=== PATIENT | male | born 1995 | race Caucasian/White ===

== ENCOUNTER 2022-12-23 02:39 | Emergency (ER) | payer SELFPAY ==
[~2022-12-23] VITALS: Ht 180.3 cm; Wt 108.9 kg
[2022-12-23 02:53] VITALS: BP_SYST 139; PULSE 58; RESP 20; O2SAT 98
--- NOTE | 2022-12-23 02:53 | NUR ---
Patient triaged and placed in waiting room. VSS and patient appears in no acute distress at this time. Accompanied by SELF, awaiting available bed, and MD notified of need for MSE.
[2022-12-23 03:36] LABS: BASOPHILS # (AUTO) 0.1 K/uL (0.0-0.2); BASOPHILS % (AUTO) 0.5 % (0.0-2.0); EOSINOPHILS # (AUTO) 0.1 K/uL (0.0-0.4); EOSINOPHILS % (AUTO) 0.7 % (0.0-4.0); HEMATOCRIT 50.4 % (36-54); HEMOGLOBIN 16.8 g/dL (14.0-18.0); LYMPHOCYTES # (AUTO) 3.3 K/uL (1.0-5.5); MEAN CORPUSCULAR HEMOGLOBIN 29 pg (27-31); MEAN CORPUSCULAR HGB CONC 33 % (32-36); MEAN CORPUSCULAR VOLUME 86 fL (79.0-98.0); MONOCYTES # (AUTO) 0.8 K/uL (0.0-1.0); MONOCYTES % (AUTO) 4.6 % (1.7-9.3); NEUTROPHILS # (AUTO) 13.2 K/uL (1.8-7.7); NEUTROPHILS % (AUTO) 75.2 % (40.0-70.0); PLATELET COUNT (AUTO) 411 K/uL (130-430); RED BLOOD CELL COUNT(AUTO) 5.87 MIL/uL (4.2-6.2); WHITE BLOOD COUNT (AUTO) 17.5 K/uL (4.8-10.8)
[2022-12-23 03:37] LABS: BILIRUBIN,URINE NEGATIVE (NEGATIVE); BLOOD, URINE 3+ (NEGATIVE); CLARITY/URINE TURBID (CLEAR); GLUCOSE,URINE TRACE (NEGATIVE); KETONES,URINE TRACE (NEGATIVE); LEUKOCYTE ESTERASE ,URINE NEGATIVE (NEGATIVE); NITRITE, URINE NEGATIVE (NEGATIVE); PROTEIN URINE 2+ (NEGATIVE)
[2022-12-23] MEDS ORDERED: KETOROLAC TROMETHAMINE 30 MG VIAL IM ONE (03:45)
[2022-12-23] MEDS ORDERED: ONDANSETRON 4 MG ODT TAB PO ONE (03:45)
[2022-12-23] MEDS ORDERED: ONDANSETRON 4 MG ODT TAB ONE ×2 (03:49→04:01)
--- NOTE | 2022-12-23 03:50 | NUR ---
PT BIB SELF FROM HOME, AMBULATED TO BED 4. PT A&Ox4, ABLE TO MAKE NEEDS KNOWN. PT C/O LOWER ABD PAIN BEGINNING TODAY. PT RATES PAIN 10/10. PT DESCRIBES PAIN SHARP. PT STATES NAUSEA AND VOMITTING x12 EPISODES. NO BLOOD NOTED. PT DENIES DIARRHEA. PT STATES HE TOOK PAIN MEDICATION BUT IS UNABLE TO RECALL THE NAME OF THE MED. PT DENIES SOB AND CHEST PAIN. SAFETY PRECAUTIONS IN PLACE.
[2022-12-23 03:53] LABS: CALCIUM 9.3 mg/dL (8.4-11.0); CREATININE 1.29 mg/dL (0.55-1.30)
[2022-12-23 03:59] LABS: TOTAL BILIRUBIN 0.6 mg/dL (0.0-1.0)
[2022-12-23 04:33] LABS: COLOR,URINE AMBER (YELLOW)
[2022-12-23 04:34] LABS: BACTERIA,URINE None Seen /HPF (None Seen); RBC,URINE >100 /HPF (0-3); WBC,URINE 0-3 /HPF (0-3)
--- NOTE | 2022-12-23 04:43 | NUR ---
ER Dr. POSEY at bedside examining patient.
[2022-12-23] MEDS ORDERED: OXYC-128 PO (05:46)
[2022-12-23] MEDS ORDERED: IBUP-1969 PO (05:46)
[2022-12-23 05:55] VITALS: BP_SYST 135; PULSE 60; RESP 20; O2SAT 98
--- NOTE | 2022-12-23 05:55 | NUR ---
Patient given written and verbal discharge instructions and verbalizes understanding. ER DR POSEY discussed with patient the results and treatment provided. Patient in stable condition. ID arm band removed. Rx of MOTRIN AND PERCOCET given. Patient educated on pain management and to follow up with PMD. Pain Scale 0/10. Opportunity for questions provided and answered. Medication side effect fact sheet provided.
== END 2022-12-23 05:55 | disposition home or self-care (01) ==
LOC: SED 02:39
DX: N20.0 Calculus of kidney (principal); R10.31 Right lower quadrant pain; R11.2 Nausea with vomiting, unspecified; Z79.899 Other long term (current) drug therapy
CPT/HCPCS: 99285; 74176; 80053; 81000; 83690; 85025; 36415; 76376; 96372; Q0162; J1885; J7030